=== PATIENT | male | born 1960 | race African-American/Black ===

== ENCOUNTER 2018-12-02 14:01 | Inpatient (IN) | payer OTHER ==
[~2018-12-02] VITALS: Ht 175.3 cm; Wt 99.3 kg
[2018-12-02] MEDS ORDERED: FUROSEMIDE 40MG/4ML VIAL IV ONE (15:15)
[2018-12-02] MEDS ORDERED: ENALAPRIL 2.5MG/2ML VIAL 2ML IV ONE (15:15)
[2018-12-02] MEDS ORDERED: ASPIRIN 81MG TABLET PO ONE (15:15)
[2018-12-02 15:59] LABS: BASOPHILS % 1.2 % (0.0-2.0); EOSINOPHILS % 2.8 % (0.0-5.0); HEMATOCRIT. 45.9 % (42.0-52.0); HEMOGLOBIN. 14.9 g/dL (14.0-18.0); LYMPHOCYTES % 24.3 % (20.0-50.0); MEAN CORPUSCULAR HEMOGLOBIN 29.3 pg (28.0-32.0); MEAN CORPUSCULAR VOLUME 89.9 fL (80.0-94.0); MEAN PLATELET VOLUME 8.9 fl (7.4-10.4); MONOCYTES % 8.5 % (2.0-8.0); NEUTROPHILS % 63.2 % (40.0-76.0); PLATELET 187 x1000/uL (130-400); RED CELL DISTRIBUTION WIDTH 15.7 % (11.6-14.6)
[2018-12-02 16:03] LABS: CHLORIDE 107 mEq/L (98-107)
[2018-12-02 16:06] LABS: INR 1.1; PARTIAL THROMBOPLASTIN TIME 27.3 sec (23.4-31.0); PROTHROMBIN TIME 10.9 sec (9.1-11.1)
[2018-12-02] MEDS ORDERED: POTASSIUM CHLORIDE 20MEQ TABLET SR PO ONE (16:15)
[2018-12-02] MEDS ORDERED: IPRATROPIUM/ALBUTEROL 0.5-3(2.5)MG/3ML NEB INH PRN (17:30)
[2018-12-02] MEDS ORDERED: NA PHOS,M-B/NA PHOS,DI-BA ENEMA 118ML PR PRN (17:30)
[2018-12-02] MEDS ORDERED: MAGNESIUM/ALUMINUM HYDROXIDE/SIMETHICONE 30ML UDC PO PRN (17:30)
[2018-12-02] MEDS ORDERED: DOCUSATE SODIUM 100MG CAPSULE PO PRN (17:30)
[2018-12-02] MEDS ORDERED: LORAZEPAM 2MG/ML CPJ IV PRN (17:30)
[2018-12-02] MEDS ORDERED: DIPHENHYDRAMINE 50MG/ML VIAL IV PRN (17:30)
[2018-12-02] MEDS ORDERED: ONDANSETRON HCL 4MG/2ML INJ IV PRN (17:30)
[2018-12-02] MEDS ORDERED: GUAIFENESIN 200MG/10ML SUGAR FREE UDC PO PRN (17:30)
[2018-12-02] MEDS ORDERED: ACETAMINOPHEN 325MG TABLET PO PRN (17:30)
[2018-12-02] MEDS ORDERED: HYDRALAZINE 20MG/ML VIAL IV PRN ×2 (17:30→18:00)
[2018-12-02] MEDS ORDERED: HYDROCODONE/ACETAMINOPHEN 10/325MG TABLET PO PRN (17:30)
[2018-12-02] MEDS ORDERED: HYDROMORPHONE HCL/PF 2MG/ML CPJ IV PRN (17:30)
[2018-12-02] MEDS ORDERED: ENOXAPARIN 40MG/0.4ML SYR SUBCUT NR (18:15)
[2018-12-02] MEDS: CLONIDINE 0.1MG TABLET PO PRN (23:07)
[2018-12-02 23:50] LABS: CREATINE KINASE MB FRACTION 3.7 ng/mL (0.5-3.6)
[2018-12-03] VITALS (7 sets, daily range): BP systolic 119–169; BP diastolic 86–127
[2018-12-03] MEDS ORDERED: BRIM5DRO6 EACHEYE (00:55)
[2018-12-03] MEDS ORDERED: TIMO5DRO32 OP (00:55)
[2018-12-03] MEDS ORDERED: DORZ10DR17 OP (00:55)
[2018-12-03] MEDS: SODIUM CHLORIDE 0.9% INJ 3ML FLUSH IVF SCH ×3 (05:14→21:03)
[2018-12-03 05:47] LABS: *AMPHETAMINES SCREEN URINE NEGATIVE (NEGATIVE); *BARBITURATES SCREEN URINE NEGATIVE (NEGATIVE)
[2018-12-03 05:48] LABS: *BENZODIAZEPINES SCREEN URINE NEGATIVE (NEGATIVE); *COCAINE SCREEN URINE NEGATIVE (NEGATIVE); CANNABINOID URINE SCREEN NEGATIVE (NEGATIVE); METHADONE URINE SCREEN NEGATIVE (NEGATIVE); OPIATES URINE SCREEN NEGATIVE (NEGATIVE); PHENCYCLIDINE URINE SCREEN NEGATIVE (NEGATIVE)
[2018-12-03 06:38] LABS: CHLORIDE 111 mEq/L (98-107)
[2018-12-03 06:41] LABS: BASOPHILS % 1.2 % (0.0-2.0); EOSINOPHILS % 3.8 % (0.0-5.0); HEMATOCRIT. 40.2 % (42.0-52.0); HEMOGLOBIN. 13.2 g/dL (14.0-18.0); LYMPHOCYTES % 20.9 % (20.0-50.0); MEAN CORPUSCULAR HEMOGLOBIN 29.4 pg (28.0-32.0); MEAN CORPUSCULAR VOLUME 89.6 fL (80.0-94.0); MEAN PLATELET VOLUME 9.3 fl (7.4-10.4); MONOCYTES % 10.7 % (2.0-8.0); NEUTROPHILS % 63.4 % (40.0-76.0); PLATELET 164 x1000/uL (130-400); RED BLOOD CELL COUNT 4.49 mill/uL (4.7-6.1)
[2018-12-03 06:58] LABS: LDL CHOLESTEROL 95 mg/dL (5-100)
[2018-12-03 06:59] LABS: CREATINE KINASE 103 IU/L (39-308); CREATINE KINASE MB FRACTION 3.1 ng/mL (0.5-3.6); HDL CHOLESTEROL 39 mg/dL (40-59); T4 FREE 1.11 ng/dL (0.76-1.46)
[2018-12-03] MEDS ORDERED: ENOXAPARIN 40MG/0.4ML SYR SUBCUT SCH (09:00)
[2018-12-03] MEDS ORDERED: ASPIRIN 81MG EC TABLET PO SCH (09:00)
[2018-12-03] MEDS: CLONIDINE 0.1MG TABLET PO PRN ×2 (09:33→17:45)
[2018-12-03] MEDS: FUROSEMIDE 40MG/4ML VIAL IV SCH (09:34)
[2018-12-03] MEDS: ENOXAPARIN 30MG/0.3ML SYR SUBCUT SCH ×2 (09:34→21:03)
[2018-12-03] MEDS ORDERED: POTASSIUM CHLORIDE INJ 40 MEQ in DEXT 5% WATER 250 ML IV NR (13:00)
[2018-12-03] MEDS: DORZOLAMIDE 2% OPHTH 10 ML BOTTLE BOTHEYE SCH ×2 (14:22→16:22)
[2018-12-03 15:51] LABS: CHLORIDE 110 mEq/L (98-107)
[2018-12-03 16:14] LABS: CREATINE KINASE MB FRACTION 3.1 ng/mL (0.5-3.6)
[2018-12-03] MEDS: TIMOLOL MALEATE 0.5% OPHTH DROPS 5ML EACHEYE SCH (16:23)
[2018-12-03] MEDS ORDERED: TIMOLOL MALEATE OP SCH (17:00)
[2018-12-03] MEDS ORDERED: DORZOLAMIDE HCL OP SCH (17:00)
[2018-12-03 18:21] LABS: T4 FREE 0.99 ng/dL (0.76-1.46)
[2018-12-03] MEDS: CARVEDILOL 3.125 MG TABLET PO SCH (21:02)
[2018-12-03] MEDS: LATANOPROST 0.005% OPHTH DROPS 2.5ML BOTHEYE SCH (21:03)
[2018-12-03] MEDS ORDERED: MAGNESIUM 1 G PREMIX 100 ML IV NR (22:00)
[2018-12-03] MEDS: BRIMONIDINE 0.2% OPHTH DROPS 5ML EACHEYE SCH (22:30)
[2018-12-04] VITALS (7 sets, daily range): BP systolic 130–154; BP diastolic 85–105
[2018-12-04 01:31] LABS: CREATINE KINASE MB FRACTION 2.4 ng/mL (0.5-3.6)
[2018-12-04] MEDS: CLONIDINE 0.1MG TABLET PO PRN (05:38)
[2018-12-04] MEDS: SODIUM CHLORIDE 0.9% INJ 3ML FLUSH IVF SCH ×3 (05:38→20:59)
[2018-12-04 08:05] LABS: BASOPHILS % 1.1 % (0.0-2.0); EOSINOPHILS % 5.1 % (0.0-5.0); HEMATOCRIT. 39.6 % (42.0-52.0); HEMOGLOBIN. 12.8 g/dL (14.0-18.0); LYMPHOCYTES % 16.5 % (20.0-50.0); MEAN CORPUSCULAR HEMOGLOBIN 28.8 pg (28.0-32.0); MEAN CORPUSCULAR VOLUME 88.8 fL (80.0-94.0); MEAN PLATELET VOLUME 9.1 fl (7.4-10.4); MONOCYTES % 9.2 % (2.0-8.0); NEUTROPHILS % 68.1 % (40.0-76.0); PLATELET 166 x1000/uL (130-400); RED BLOOD CELL COUNT 4.46 mill/uL (4.7-6.1); RED CELL DISTRIBUTION WIDTH 14.8 % (11.6-14.6)
[2018-12-04 08:17] LABS: CREATINE KINASE MB FRACTION 2.4 ng/mL (0.5-3.6)
[2018-12-04] MEDS: FUROSEMIDE 40MG/4ML VIAL IV SCH (08:22)
[2018-12-04] MEDS: ASPIRIN 81MG TABLET PO SCH (08:22)
[2018-12-04] MEDS: LOSARTAN POTASSIUM 50 MG TABLET PO SCH (08:22)
[2018-12-04] MEDS: CARVEDILOL 3.125 MG TABLET PO SCH ×2 (08:22→20:59)
[2018-12-04] MEDS: DORZOLAMIDE 2% OPHTH 10 ML BOTTLE BOTHEYE SCH ×3 (08:23→17:34)
[2018-12-04] MEDS: ENOXAPARIN 30MG/0.3ML SYR SUBCUT SCH ×2 (08:23→20:58)
[2018-12-04] MEDS: TIMOLOL MALEATE 0.5% OPHTH DROPS 5ML EACHEYE SCH ×2 (08:23→17:35)
[2018-12-04] MEDS: BRIMONIDINE 0.2% OPHTH DROPS 5ML EACHEYE SCH ×2 (08:23→17:35)
[2018-12-04 09:06] LABS: CHLORIDE 108 mEq/L (98-107)
[2018-12-04] MEDS ORDERED: POTASSIUM CHLORIDE 20MEQ TABLET SR PO SCH (09:20)
[2018-12-04] MEDS ORDERED: GUAIFENESIN 600MG ER TABLET PO SCH (10:00)
[2018-12-04] MEDS: LATANOPROST 0.005% OPHTH DROPS 2.5ML BOTHEYE SCH (20:59)
[2018-12-05] VITALS: BP 120/80
[2018-12-05 04:00] VITALS: BP 120/75
[2018-12-05] MEDS: SODIUM CHLORIDE 0.9% INJ 3ML FLUSH IVF SCH (05:42)
[2018-12-05 08:00] VITALS: BP 164/105
[2018-12-05] MEDS: FUROSEMIDE 40MG/4ML VIAL IV SCH (08:43)
[2018-12-05] MEDS: ASPIRIN 81MG TABLET PO SCH (08:43)
[2018-12-05] MEDS: LOSARTAN POTASSIUM 50 MG TABLET PO SCH (08:43)
[2018-12-05] MEDS: CARVEDILOL 3.125 MG TABLET PO SCH (08:43)
[2018-12-05] MEDS: ENOXAPARIN 30MG/0.3ML SYR SUBCUT SCH (08:43)
[2018-12-05] MEDS: TIMOLOL MALEATE 0.5% OPHTH DROPS 5ML EACHEYE SCH (08:44)
[2018-12-05] MEDS: DORZOLAMIDE 2% OPHTH 10 ML BOTTLE BOTHEYE SCH (08:44)
[2018-12-05] MEDS: BRIMONIDINE 0.2% OPHTH DROPS 5ML EACHEYE SCH (08:44)
[2018-12-05 12:00] VITALS: BP 150/100
== END 2018-12-05 12:20 | disposition home or self-care (01) | DRG 291 ==
LOC: ER 14:01 → 5WST 15:35 → EDBEDREQTM 15:37 → EDBEDREQ 15:37 → ENRESERV 22:27
PROVIDERS: ADMIT Internal Medicine; ATTEND Internal Medicine
DX: I11.0 Hypertensive heart disease with heart failure (principal); J96.90 Respiratory failure, unspecified, unspecified whether with hypoxia or hypercapnia; I50.40 Unspecified combined systolic (congestive) and diastolic (congestive) heart failure; E87.6 Hypokalemia; E78.5 Hyperlipidemia, unspecified; Z91.14 Patient's other noncompliance with medication regimen; Z91.19 Patient's noncompliance with other medical treatment and regimen
CPT/HCPCS: 36415; 71045; 80048; 80061; 80305; 82550; 82553; 83036; 83735; 83880; 84439; 84443; 84484; 85379; 93005; 93306; 93970; 96374; 96375; 99285; J0360; J1650; J1940; J3475; J3480; J3490; J7050; J7060

== ENCOUNTER 2019-01-24 20:09 | Inpatient (IN) | payer OTHER ==
[~2019-01-24] VITALS: Ht 175.3 cm; Wt 103.4 kg
[~2019-01-24 20:09] MED LIST: BRIM5DRO6 EACHEYE; DORZ10DR17 OP; TIMO5DRO32 OP
[2019-01-24] MEDS ORDERED: IPRATROPIUM BROMIDE (0.02%) 0.5MG/2.5ML NEB HHN STA (21:23)
[2019-01-24] MEDS ORDERED: ALBUTEROL (0.083%) 2.5MG/3ML NEB HHN STA (21:23)
[2019-01-24] MEDS ORDERED: SODIUM CHLORIDE 0.9% 1,000 ML IV ONE (21:23)
[2019-01-24] MEDS ORDERED: ASPIRIN 81MG TABLET PO ONE (21:30)
[2019-01-24 22:05] LABS: HEMOGLOBIN. 14.1 g/dL (14.0-18.0); MEAN CORPUSCULAR HEMOGLOBIN 28.7 pg (28.0-32.0); MEAN CORPUSCULAR VOLUME 89.5 fL (80.0-94.0); MEAN PLATELET VOLUME 9.2 fl (7.4-10.4); PLATELET 164 x1000/uL (130-400); RED BLOOD CELL COUNT 4.92 mill/uL (4.7-6.1); RED CELL DISTRIBUTION WIDTH 15.6 % (11.6-14.6)
[2019-01-24 22:08] LABS: CHLORIDE 108 mEq/L (98-107)
[2019-01-24] MEDS ORDERED: POTASSIUM CHLORIDE 20MEQ TABLET SR PO ONE (22:15)
[2019-01-24] MEDS ORDERED: FUROSEMIDE 40MG/4ML VIAL IVP ONE (22:45)
[2019-01-24 23:10] LABS: PLATELET ESTIMATE NORMAL
[2019-01-24] MEDS ORDERED: IPRATROPIUM/ALBUTEROL 0.5-3(2.5)MG/3ML NEB INH PRN (23:45)
[2019-01-24] MEDS ORDERED: NA PHOS,M-B/NA PHOS,DI-BA ENEMA 118ML PR PRN (23:45)
[2019-01-24] MEDS ORDERED: ACETAMINOPHEN 325MG TABLET PO PRN (23:45)
[2019-01-24] MEDS ORDERED: ACETAMINOPHEN 650MG SUPP PR PRN (23:45)
[2019-01-24] MEDS ORDERED: HYDROCODONE/ACETAMINOPHEN 5/325MG TABLET PO PRN (23:45)
[2019-01-24] MEDS ORDERED: GUAIFENESIN 200MG/10ML SUGAR FREE UDC PO PRN (23:45)
[2019-01-24] MEDS ORDERED: DIPHENHYDRAMINE 50MG/ML VIAL IV PRN (23:45)
[2019-01-24] MEDS ORDERED: ACETAMINOPHEN 650MG/20.3ML UDC GT PRN (23:45)
[2019-01-24] MEDS ORDERED: ONDANSETRON HCL 4MG/2ML INJ IV PRN (23:45)
[2019-01-24] MEDS ORDERED: DOCUSATE SODIUM 100MG CAPSULE PO PRN (23:45)
[2019-01-24] MEDS ORDERED: MAGNESIUM/ALUMINUM HYDROXIDE/SIMETHICONE 30ML UDC PO PRN (23:45)
[2019-01-25] VITALS: BP 156/103
[2019-01-25] MEDS: METHYLPREDNISOLONE SOD SUCC 125 MG/2 ML VIAL IV SCH ×4 (00:29→18:05)
[2019-01-25] MEDS: SODIUM CHLORIDE 0.9% INJ 3ML FLUSH IVF SCH ×3 (06:28→21:57)
[2019-01-25 06:33] LABS: HEMATOCRIT. 46.5 % (42.0-52.0); MEAN CORPUSCULAR VOLUME 89.5 fL (80.0-94.0); MEAN PLATELET VOLUME 9.4 fl (7.4-10.4); PLATELET 171 x1000/uL (130-400); RED BLOOD CELL COUNT 5.19 mill/uL (4.7-6.1); RED CELL DISTRIBUTION WIDTH 15.8 % (11.6-14.6)
[2019-01-25 07:38] LABS: CHLORIDE 110 mEq/L (98-107)
[2019-01-25 07:50] LABS: LDL CHOLESTEROL 97 mg/dL (5-100)
[2019-01-25 07:51] LABS: CREATINE KINASE 249 IU/L (39-308); HDL CHOLESTEROL 36 mg/dL (40-59)
[2019-01-25 07:57] LABS: CREATINE KINASE MB FRACTION 5.8 ng/mL (0.5-3.6)
[2019-01-25 08:00] VITALS: BP 141/100
[2019-01-25] MEDS: ENOXAPARIN 40MG/0.4ML SYR SUBCUT SCH (08:46)
[2019-01-25] MEDS: CLONIDINE 0.1MG TABLET PO PRN ×3 (08:46→21:55)
[2019-01-25] MEDS ORDERED: ASPI-1159 MT (09:39)
[2019-01-25] MEDS ORDERED: FURO80TA87 MT (09:39)
[2019-01-25] MEDS ORDERED: COR3 MT (09:39)
[2019-01-25] MEDS ORDERED: LOSA50TA20 MT (09:39)
[2019-01-25] MEDS ORDERED: MEDICATION NOT ON FORMULARY EA (Aspirin (Aspirin Low Dose) 1 TAB) MT SCH (09:45)
[2019-01-25] MEDS ORDERED: CARVEDILOL 3.125 MG TABLET PO SCH (09:45)
[2019-01-25] MEDS ORDERED: POTASSIUM CHLORIDE 20MEQ TABLET SR PO NR ×2 (09:45→14:45)
[2019-01-25] MEDS: IPRATROPIUM/ALBUTEROL 0.5-3(2.5)MG/3ML NEB INH SCH ×3 (09:57→20:49)
[2019-01-25] MEDS: FUROSEMIDE 40MG/4ML VIAL IVP SCH (10:19)
[2019-01-25] MEDS: ASPIRIN 81MG EC TABLET PO SCH (10:20)
[2019-01-25] MEDS: LISINOPRIL 5MG TABLET PO SCH (10:20)
[2019-01-25 12:00] VITALS: BP 144/105
[2019-01-25] MEDS: CARVEDILOL 12.5MG TABLET PO SCH ×2 (13:56→21:55)
[2019-01-25 16:00] VITALS: BP 148/117
[2019-01-25 17:35] LABS: PLATELET ESTIMATE NORMAL
[2019-01-25 18:14] VITALS: BP 146/107
[2019-01-25] MEDS: LOSARTAN POTASSIUM 50 MG TABLET PO SCH (18:59)
[2019-01-25 20:00] VITALS: BP 140/92
[2019-01-25 20:15] LABS: CLARITY URINE CLEAR (CLEAR); COLOR URINE DARK YELLOW (YELLOW); KETONES URINE NEGATIVE (NEGATIVE); LEUKOCYTE ESTERASE URINE NEGATIVE (NEGATIVE); NITRITE URINE NEGATIVE (NEGATIVE); OCCULT BLOOD URINE NEGATIVE (NEGATIVE); PROTEIN URINE 1+ (NEGATIVE); SPECIFIC GRAVITY URINE 1.017 (1.005-1.030)
[2019-01-25 20:30] LABS: *AMPHETAMINES SCREEN URINE NEGATIVE (NEGATIVE); *BARBITURATES SCREEN URINE NEGATIVE (NEGATIVE); *BENZODIAZEPINES SCREEN URINE NEGATIVE (NEGATIVE); *COCAINE SCREEN URINE NEGATIVE (NEGATIVE)
[2019-01-25 20:31] LABS: CANNABINOID URINE SCREEN NEGATIVE (NEGATIVE); METHADONE URINE SCREEN NEGATIVE (NEGATIVE); OPIATES URINE SCREEN NEGATIVE (NEGATIVE); PHENCYCLIDINE URINE SCREEN NEGATIVE (NEGATIVE)
[2019-01-25] MEDS ORDERED: CARVEDILOL 12.5MG TABLET PO SCH (21:00)
[2019-01-26] VITALS: BP 132/94
[2019-01-26] MEDS: METHYLPREDNISOLONE SOD SUCC 125 MG/2 ML VIAL IV SCH ×3 (00:09→12:12)
[2019-01-26] MEDS: IPRATROPIUM/ALBUTEROL 0.5-3(2.5)MG/3ML NEB INH SCH ×3 (01:21→14:04)
[2019-01-26 04:00] VITALS: BP 125/91
[2019-01-26] MEDS: SODIUM CHLORIDE 0.9% INJ 3ML FLUSH IVF SCH (06:26)
[2019-01-26 08:00] VITALS: BP 139/102
[2019-01-26] MEDS: ENOXAPARIN 40MG/0.4ML SYR SUBCUT SCH (08:45)
[2019-01-26] MEDS: FUROSEMIDE 40MG/4ML VIAL IVP SCH (08:45)
[2019-01-26] MEDS: CARVEDILOL 12.5MG TABLET PO SCH (08:46)
[2019-01-26] MEDS: ASPIRIN 81MG EC TABLET PO SCH (08:46)
[2019-01-26] MEDS: LISINOPRIL 5MG TABLET PO SCH (08:47)
[2019-01-26] MEDS: LOSARTAN POTASSIUM 50 MG TABLET PO SCH (08:48)
[2019-01-26] MEDS ORDERED: POTASSIUM CHLORIDE 20MEQ TABLET SR PO NR ×2 (10:15→11:45)
[2019-01-26] MEDS ORDERED: POTASSIUM CHLORIDE 20MEQ TABLET SR PO SCH (10:50)
[2019-01-26] MEDS ORDERED: SPIRONOLACTONE 25MG TABLET PO SCH (11:45)
[2019-01-26 12:00] VITALS: BP 123/90
[2019-01-26 12:23] LABS: CHLORIDE 107 mEq/L (98-107)
[2019-01-26 12:47] LABS: HEMOGLOBIN. 14.2 g/dL (14.0-18.0); MEAN CORPUSCULAR HEMOGLOBIN 28.9 pg (28.0-32.0); MEAN CORPUSCULAR VOLUME 89.7 fL (80.0-94.0); MEAN PLATELET VOLUME 9.7 fl (7.4-10.4); PLATELET 173 x1000/uL (130-400); RED CELL DISTRIBUTION WIDTH 15.4 % (11.6-14.6)
[2019-01-26 13:40] VITALS: BP 123/90
[2019-01-26 16:41] LABS: PLATELET ESTIMATE NORMAL
[2019-01-26] MEDS ORDERED: LOSARTAN POTASSIUM 50 MG TABLET PO SCH (21:00)
[2019-01-26] MEDS ORDERED: CARVEDILOL 25MG TABLET PO SCH (21:00)
== END 2019-01-26 15:40 | disposition home or self-care (01) | DRG 682 ==
LOC: ER 20:09 → 5WST 22:45 → EDBEDREQ 22:52 → EDBEDREQTM 22:52 → ENRESERV 22:58
PROVIDERS: ADMIT Family Medicine; ATTEND Family Medicine
DX: N17.9 Acute kidney failure, unspecified (principal); E43 Unspecified severe protein-calorie malnutrition; I50.23 Acute on chronic systolic (congestive) heart failure; J96.00 Acute respiratory failure, unspecified whether with hypoxia or hypercapnia; J44.1 Chronic obstructive pulmonary disease with (acute) exacerbation; I13.0 Hypertensive heart and chronic kidney disease with heart failure and stage 1 through stage 4 chronic kidney disease, or unspecified chronic kidney disease; I42.0 Dilated cardiomyopathy; E66.9 Obesity, unspecified; Z68.33 Body mass index [BMI] 33.0-33.9, adult; R73.9 Hyperglycemia, unspecified; E87.6 Hypokalemia; I27.20 Pulmonary hypertension, unspecified; N18.3 Chronic kidney disease, stage 3 (moderate); Z87.891 Personal history of nicotine dependence; Z91.14 Patient's other noncompliance with medication regimen; Z91.19 Patient's noncompliance with other medical treatment and regimen
CPT/HCPCS: 36415; 71045; 71250; 76770; 80061; 80305; 82550; 82553; 83880; 84484; 93005; 93306; 94640; 96374; 96375; 99285; J1650; J1940; J2930; J7030; J7611; J7620

== ENCOUNTER 2019-03-06 01:51 | Inpatient (IN) | payer OTHER ==
[~2019-03-06] VITALS: Ht 175.3 cm; Wt 106.6 kg
[~2019-03-06 01:51] MED LIST changes: +ASPI-1393 MT; +COR3 MT; +FURO80TA87 MT; +LOSA50TA41 MT
[2019-03-06] MEDS ORDERED: ENALAPRIL 2.5MG/2ML VIAL 2ML IV ONE (03:45)
[2019-03-06] MEDS ORDERED: FUROSEMIDE 40MG/4ML VIAL IV ONE (03:45)
[2019-03-06] MEDS ORDERED: NITROGLYCERIN OINT 1GM/INCH UDPKT TD ONE (03:45)
[2019-03-06 04:25] LABS: BASOPHILS % 1.3 % (0.0-2.0); EOSINOPHILS % 1.7 % (0.0-5.0); HEMATOCRIT. 43.3 % (42.0-52.0); HEMOGLOBIN. 14.3 g/dL (14.0-18.0); LYMPHOCYTES % 16.4 % (20.0-50.0); MEAN CORPUSCULAR HEMOGLOBIN 29.1 pg (28.0-32.0); MEAN CORPUSCULAR VOLUME 88.3 fL (80.0-94.0); MEAN PLATELET VOLUME 9.2 fl (7.4-10.4); NEUTROPHILS % 70.6 % (40.0-76.0); PLATELET 157 x1000/uL (130-400); RED BLOOD CELL COUNT 4.91 mill/uL (4.7-6.1); RED CELL DISTRIBUTION WIDTH 16.9 % (11.6-14.6)
[2019-03-06 04:27] LABS: CHLORIDE 111 mEq/L (98-107)
[2019-03-06 04:30] LABS: INR 1.1; PROTHROMBIN TIME 11.5 sec (9.6-11.0)
[2019-03-06] MEDS ORDERED: KCL 20MEQ/100ML PREMIX 100 ML IV ONE (05:30)
[2019-03-06] MEDS ORDERED: NITROGLYCERIN 0.4MG TABLET SL SL PRN (08:15)
[2019-03-06] MEDS ORDERED: GUAIFENESIN 200MG/10ML SUGAR FREE UDC PO PRN (08:15)
[2019-03-06] MEDS ORDERED: ACETAMINOPHEN 325MG TABLET PO PRN (08:15)
[2019-03-06] MEDS ORDERED: ENOXAPARIN 40MG/0.4ML SYR SUBCUT SCH (08:15)
[2019-03-06] MEDS ORDERED: LORAZEPAM 0.5MG TABLET PO PRN (08:15)
[2019-03-06] MEDS ORDERED: ONDANSETRON HCL 4MG/2ML INJ IV PRN (08:15)
[2019-03-06] MEDS ORDERED: TRAMADOL 50MG TABLET PO PRN (08:15)
[2019-03-06] MEDS ORDERED: DOCUSATE SODIUM 100MG CAPSULE PO PRN (08:15)
[2019-03-06] MEDS ORDERED: IPRATROPIUM/ALBUTEROL 0.5-3(2.5)MG/3ML NEB INH PRN (08:15)
[2019-03-06] MEDS ORDERED: MAGNESIUM/ALUMINUM HYDROXIDE/SIMETHICONE 30ML UDC PO PRN (08:15)
[2019-03-06] MEDS ORDERED: ZOLPIDEM TARTRATE 5MG TABLET PO PRN (08:15)
[2019-03-06] MEDS: GUAIFENESIN/DM 600MG/30MG ER TAB 12HR PO SCH ×2 (08:15→20:37)
[2019-03-06] MEDS ORDERED: POTASSIUM CHLORIDE 20MEQ TABLET SR PO NR (09:00)
[2019-03-06] MEDS: CLONIDINE 0.1MG TABLET PO PRN (09:06)
[2019-03-06] MEDS: LOSARTAN POTASSIUM 100 MG TABLET PO SCH (09:23)
[2019-03-06] MEDS: ASPIRIN 325MG EC TABLET PO SCH (10:01)
[2019-03-06] MEDS: FAMOTIDINE 20MG TABLET PO SCH ×2 (10:01→20:36)
[2019-03-06] MEDS: FUROSEMIDE 40MG/4ML VIAL IVP SCH ×2 (10:02→20:36)
[2019-03-06 11:04] VITALS: BP 150/118
[2019-03-06] MEDS ORDERED: SPIR25TA6 PO (11:09)
[2019-03-06] MEDS ORDERED: POTA10TA15 PO (11:10)
[2019-03-06 11:24] VITALS: BP 150/118
[2019-03-06] MEDS: SPIRONOLACTONE 25MG TABLET PO SCH ×2 (12:47→20:36)
[2019-03-06 15:41] LABS: *AMPHETAMINES SCREEN URINE NEGATIVE (NEGATIVE); CANNABINOID URINE SCREEN NEGATIVE (NEGATIVE); METHADONE URINE SCREEN NEGATIVE (NEGATIVE); OPIATES URINE SCREEN NEGATIVE (NEGATIVE); PHENCYCLIDINE URINE SCREEN NEGATIVE (NEGATIVE)
[2019-03-06 15:42] LABS: *BARBITURATES SCREEN URINE NEGATIVE (NEGATIVE); *BENZODIAZEPINES SCREEN URINE NEGATIVE (NEGATIVE)
[2019-03-06 15:43] LABS: *COCAINE SCREEN URINE NEGATIVE (NEGATIVE)
[2019-03-06 15:53] VITALS: BP 125/95
[2019-03-06] MEDS: CARVEDILOL 12.5MG TABLET PO SCH (18:23)
[2019-03-06] MEDS: ENOXAPARIN 30MG/0.3ML SYR SUBCUT SCH (20:39)
[2019-03-07] MEDS: CARVEDILOL 12.5MG TABLET PO SCH (06:03)
[2019-03-07 06:11] LABS: EOSINOPHILS % 2.7 % (0.0-5.0); HEMATOCRIT. 39.3 % (42.0-52.0); LYMPHOCYTES % 15.9 % (20.0-50.0); MEAN CORPUSCULAR HEMOGLOBIN 29.2 pg (28.0-32.0); MEAN CORPUSCULAR VOLUME 88.5 fL (80.0-94.0); MEAN PLATELET VOLUME 9.2 fl (7.4-10.4); MONOCYTES % 8.1 % (2.0-8.0); NEUTROPHILS % 72.3 % (40.0-76.0); PLATELET 145 x1000/uL (130-400); RED BLOOD CELL COUNT 4.44 mill/uL (4.7-6.1); RED CELL DISTRIBUTION WIDTH 17.2 % (11.6-14.6)
[2019-03-07 06:19] LABS: CHLORIDE 111 mEq/L (98-107)
[2019-03-07 08:00] VITALS: BP 142/106
[2019-03-07] MEDS: FAMOTIDINE 20MG TABLET PO SCH ×2 (09:26→20:18)
[2019-03-07] MEDS: FUROSEMIDE 40MG/4ML VIAL IVP SCH ×2 (09:27→20:18)
[2019-03-07] MEDS: ASPIRIN 325MG EC TABLET PO SCH (09:27)
[2019-03-07] MEDS: ENOXAPARIN 30MG/0.3ML SYR SUBCUT SCH ×2 (09:27→20:18)
[2019-03-07] MEDS: CLONIDINE 0.1MG TABLET PO PRN (09:27)
[2019-03-07] MEDS: SPIRONOLACTONE 25MG TABLET PO SCH ×2 (09:27→20:19)
[2019-03-07] MEDS: LOSARTAN POTASSIUM 100 MG TABLET PO SCH (09:27)
[2019-03-07] MEDS: GUAIFENESIN/DM 600MG/30MG ER TAB 12HR PO SCH ×2 (09:31→20:19)
[2019-03-07 10:00] VITALS: BP 131/90
[2019-03-07] MEDS ORDERED: POTASSIUM CHLORIDE 20MEQ TABLET SR PO NR (10:00)
[2019-03-07 12:00] VITALS: BP 136/101
[2019-03-07 14:00] VITALS: BP 132/96
[2019-03-07 16:00] VITALS: BP 132/96
[2019-03-07] MEDS: CARVEDILOL 25MG TABLET PO SCH (17:22)
[2019-03-07 20:00] VITALS: BP 133/94
[2019-03-07] MEDS: ATORVASTATIN CALCIUM 10MG TABLET PO SCH (20:18)
[2019-03-08] VITALS: BP 129/89
[2019-03-08 04:00] VITALS: BP 135/96
[2019-03-08] MEDS: CARVEDILOL 25MG TABLET PO SCH ×2 (06:19→18:27)
[2019-03-08 08:00] VITALS: BP 130/107
[2019-03-08] MEDS: GUAIFENESIN/DM 600MG/30MG ER TAB 12HR PO SCH ×2 (09:04→23:15)
[2019-03-08] MEDS: ENOXAPARIN 30MG/0.3ML SYR SUBCUT SCH ×2 (09:05→21:00)
[2019-03-08] MEDS: ASPIRIN 325MG EC TABLET PO SCH (09:05)
[2019-03-08] MEDS: LOSARTAN POTASSIUM 100 MG TABLET PO SCH (09:05)
[2019-03-08] MEDS: FUROSEMIDE 40MG/4ML VIAL IVP SCH ×2 (09:05→23:08)
[2019-03-08] MEDS: SPIRONOLACTONE 25MG TABLET PO SCH ×2 (09:05→23:16)
[2019-03-08] MEDS: FAMOTIDINE 20MG TABLET PO SCH ×2 (09:05→23:09)
[2019-03-08 12:30] LABS: BASOPHILS % 0.7 % (0.0-2.0); EOSINOPHILS % 2.9 % (0.0-5.0); HEMATOCRIT. 40.8 % (42.0-52.0); HEMOGLOBIN. 13.2 g/dL (14.0-18.0); LYMPHOCYTES % 12.5 % (20.0-50.0); MEAN CORPUSCULAR VOLUME 89.9 fL (80.0-94.0); MEAN PLATELET VOLUME 8.9 fl (7.4-10.4); MONOCYTES % 9.9 % (2.0-8.0); PLATELET 140 x1000/uL (130-400); RED BLOOD CELL COUNT 4.54 mill/uL (4.7-6.1); RED CELL DISTRIBUTION WIDTH 16.9 % (11.6-14.6)
[2019-03-08 12:38] LABS: PHOSPHORUS 3.9 mg/dL (2.5-4.9)
[2019-03-08] MEDS ORDERED: POTASSIUM CHLORIDE 20MEQ/PACKET PO NR (13:45)
[2019-03-08 15:44] VITALS: BP 143/102
[2019-03-08 18:00] VITALS: BP 140/115
[2019-03-08] MEDS: AMIODARONE HCL 200 MG TABLET PO SCH (18:27)
[2019-03-08 20:00] VITALS: BP 127/88
[2019-03-08] MEDS: ATORVASTATIN CALCIUM 10MG TABLET PO SCH (23:09)
[2019-03-09] VITALS: BP 144/89
[2019-03-09 04:00] VITALS: BP 129/89
[2019-03-09] MEDS: CARVEDILOL 25MG TABLET PO SCH ×2 (05:42→18:30)
[2019-03-09 08:00] VITALS: BP 114/74
[2019-03-09] MEDS: GUAIFENESIN/DM 600MG/30MG ER TAB 12HR PO SCH ×2 (11:10→20:41)
[2019-03-09] MEDS: ASPIRIN 325MG EC TABLET PO SCH (11:10)
[2019-03-09] MEDS: SPIRONOLACTONE 25MG TABLET PO SCH ×2 (11:12→21:41)
[2019-03-09] MEDS: AMIODARONE HCL 200 MG TABLET PO SCH ×2 (11:13→18:31)
[2019-03-09] MEDS: LOSARTAN POTASSIUM 100 MG TABLET PO SCH (11:13)
[2019-03-09] MEDS: FUROSEMIDE 40MG/4ML VIAL IVP SCH ×2 (11:13→21:41)
[2019-03-09] MEDS: FAMOTIDINE 20MG TABLET PO SCH ×2 (11:13→21:41)
[2019-03-09] MEDS: ENOXAPARIN 30MG/0.3ML SYR SUBCUT SCH (11:14)
[2019-03-09 12:00] VITALS: BP 125/97
[2019-03-09] MEDS ORDERED: METOLAZONE 2.5MG TABLET PO NR (19:30)
[2019-03-09 20:00] VITALS: BP 122/99
[2019-03-09] MEDS: ENOXAPARIN 100MG/ML SYR SUBCUT SCH (20:41)
[2019-03-09] MEDS: ATORVASTATIN CALCIUM 10MG TABLET PO SCH (21:41)
[2019-03-09] MEDS: ISOSORB DINIT/HYDRALAZINE HCL 20/37.5MG TABLET PO SCH (21:43)
[2019-03-10] VITALS (7 sets, daily range): BP systolic 112–160; BP diastolic 59–105
[2019-03-10 03:57] LABS: CLARITY URINE CLEAR (CLEAR); COLOR URINE YELLOW (YELLOW); KETONES URINE NEGATIVE (NEGATIVE); LEUKOCYTE ESTERASE URINE NEGATIVE (NEGATIVE); NITRITE URINE NEGATIVE (NEGATIVE); OCCULT BLOOD URINE NEGATIVE (NEGATIVE); PROTEIN URINE NEGATIVE (NEGATIVE); SPECIFIC GRAVITY URINE 1.006 (1.005-1.030); UROBILINOGEN URINE 0.2 E.U./dL (0.2-1.0)
[2019-03-10] MEDS: ISOSORB DINIT/HYDRALAZINE HCL 20/37.5MG TABLET PO SCH ×3 (06:22→21:19)
[2019-03-10] MEDS ORDERED: CARVEDILOL 6.25 MG TABLET PO SCH (09:00)
[2019-03-10] MEDS: ENOXAPARIN 100MG/ML SYR SUBCUT SCH ×2 (10:08→21:00)
[2019-03-10] MEDS: AMIODARONE HCL 200 MG TABLET PO SCH ×2 (10:09→18:05)
[2019-03-10] MEDS: GUAIFENESIN/DM 600MG/30MG ER TAB 12HR PO SCH ×2 (10:09→21:31)
[2019-03-10] MEDS: ASPIRIN 325MG EC TABLET PO SCH (10:09)
[2019-03-10] MEDS: FAMOTIDINE 20MG TABLET PO SCH ×2 (10:10→21:17)
[2019-03-10] MEDS: SPIRONOLACTONE 25MG TABLET PO SCH ×2 (10:10→21:18)
[2019-03-10] MEDS: FUROSEMIDE 40MG/4ML VIAL IVP SCH (10:11)
[2019-03-10] MEDS: LOSARTAN POTASSIUM 100 MG TABLET PO SCH (10:11)
[2019-03-10] MEDS ORDERED: MIDAZOLAM HCL 2 MG/2 ML VIAL ONE (15:17)
[2019-03-10] MEDS ORDERED: FENTANYL CITRATE/PF 50MCG/ML 2ML VIAL ONE (15:17)
[2019-03-10] MEDS ORDERED: IODIXANOL 320MG/ML 100 ML BOTTLE IV ONE ×2 (15:18→16:03)
[2019-03-10] MEDS ORDERED: LIDOCAINE HCL 1% 20ML VIAL (Pyxis) INJ ONE (15:18)
[2019-03-10] MEDS ORDERED: HYDRALAZINE 20MG/ML VIAL ONE (15:53)
[2019-03-10] MEDS ORDERED: ACETAMINOPHEN 325MG TABLET PO PRN (16:30)
[2019-03-10] MEDS ORDERED: ATROPINE SULFATE 1MG/10ML SYR IV PRN (16:30)
[2019-03-10] MEDS ORDERED: SODIUM CHLORIDE 0.45% 1,000 ML IV ONE (16:45)
[2019-03-10] MEDS: CARVEDILOL 12.5MG TABLET PO SCH (18:05)
[2019-03-10] MEDS: ATORVASTATIN CALCIUM 10MG TABLET PO SCH (21:17)
[2019-03-11] VITALS (12 sets, daily range): BP systolic 126–169; BP diastolic 47–117
[2019-03-11] MEDS: ISOSORB DINIT/HYDRALAZINE HCL 20/37.5MG TABLET PO SCH ×3 (05:26→21:13)
[2019-03-11 07:16] LABS: EOSINOPHILS % 1.8 % (0.0-5.0); HEMATOCRIT. 39.4 % (42.0-52.0); HEMOGLOBIN. 13.1 g/dL (14.0-18.0); LYMPHOCYTES % 12.9 % (20.0-50.0); MEAN CORPUSCULAR HEMOGLOBIN 29.1 pg (28.0-32.0); MEAN CORPUSCULAR VOLUME 87.9 fL (80.0-94.0); MEAN PLATELET VOLUME 9.1 fl (7.4-10.4); MONOCYTES % 12.2 % (2.0-8.0); NEUTROPHILS % 72.1 % (40.0-76.0); PLATELET 157 x1000/uL (130-400); RED BLOOD CELL COUNT 4.49 mill/uL (4.7-6.1); RED CELL DISTRIBUTION WIDTH 16.7 % (11.6-14.6)
[2019-03-11 07:24] LABS: CHLORIDE 100 mEq/L (98-107)
[2019-03-11] MEDS: AMIODARONE HCL 200 MG TABLET PO SCH ×2 (09:03→18:00)
[2019-03-11] MEDS: ASPIRIN 325MG EC TABLET PO SCH (09:03)
[2019-03-11] MEDS: SPIRONOLACTONE 25MG TABLET PO SCH ×2 (09:03→21:12)
[2019-03-11] MEDS: GUAIFENESIN/DM 600MG/30MG ER TAB 12HR PO SCH ×2 (09:03→21:08)
[2019-03-11] MEDS: FAMOTIDINE 20MG TABLET PO SCH ×2 (09:03→21:12)
[2019-03-11] MEDS: LOSARTAN POTASSIUM 100 MG TABLET PO SCH (09:03)
[2019-03-11] MEDS: CARVEDILOL 12.5MG TABLET PO SCH ×2 (09:03→18:00)
[2019-03-11] MEDS: ENOXAPARIN 100MG/ML SYR SUBCUT SCH (09:04)
[2019-03-11] MEDS ORDERED: POTASSIUM CHLORIDE 20MEQ TABLET SR PO SCH (09:30)
[2019-03-11] MEDS: FUROSEMIDE 40MG TABLET PO SCH (09:36)
[2019-03-11] MEDS ORDERED: POTASSIUM CHLORIDE INJ 40 MEQ in DEXT 5% WATER 250 ML IV SCH (11:00)
[2019-03-11] MEDS ORDERED: FURO40TA5 PO (15:27)
[2019-03-11] MEDS ORDERED: CARV12.545 PO (15:27)
[2019-03-11] MEDS ORDERED: APIXABAN 5 MG TABLET PO SCH (17:00)
[2019-03-11 19:30] LABS: HEMATOCRIT 39.6 % (42.0-52.0); HEMOGLOBIN 13.1 g/dL (14.0-18.0); MEAN CORPUSCULAR HEMOGLOBIN 29.2 pg (28.0-32.0); MEAN CORPUSCULAR VOLUME 88.2 fL (80.0-94.0); PLATELET 166 x1000/uL (130-400); RED BLOOD CELL COUNT 4.49 mill/uL (4.7-6.1); RED CELL DISTRIBUTION WIDTH 17.1 % (11.6-14.6)
[2019-03-11] MEDS: ATORVASTATIN CALCIUM 10MG TABLET PO SCH (21:08)
[2019-03-12] VITALS (7 sets, daily range): BP systolic 134–172; BP diastolic 80–98
[2019-03-12] MEDS ORDERED: MAGNESIUM 2 G PREMIX 50 ML IV NR
[2019-03-12] MEDS: AMIODARONE HCL 200 MG TABLET PO SCH (06:38)
[2019-03-12] MEDS: ISOSORB DINIT/HYDRALAZINE HCL 20/37.5MG TABLET PO SCH (06:39)
[2019-03-12 07:20] LABS: BASOPHILS % 0.8 % (0.0-2.0); EOSINOPHILS % 2.1 % (0.0-5.0); HEMATOCRIT. 40.8 % (42.0-52.0); HEMOGLOBIN. 13.3 g/dL (14.0-18.0); LYMPHOCYTES % 11.2 % (20.0-50.0); MEAN CORPUSCULAR HEMOGLOBIN 28.9 pg (28.0-32.0); MEAN CORPUSCULAR VOLUME 88.3 fL (80.0-94.0); MEAN PLATELET VOLUME 9.3 fl (7.4-10.4); MONOCYTES % 13.5 % (2.0-8.0); NEUTROPHILS % 72.4 % (40.0-76.0); PLATELET 150 x1000/uL (130-400); RED BLOOD CELL COUNT 4.62 mill/uL (4.7-6.1); RED CELL DISTRIBUTION WIDTH 16.9 % (11.6-14.6)
[2019-03-12] MEDS: GUAIFENESIN/DM 600MG/30MG ER TAB 12HR PO SCH (08:16)
[2019-03-12] MEDS: FAMOTIDINE 20MG TABLET PO SCH (08:16)
[2019-03-12] MEDS: ASPIRIN 325MG EC TABLET PO SCH (08:16)
[2019-03-12] MEDS: SPIRONOLACTONE 25MG TABLET PO SCH (08:17)
[2019-03-12] MEDS: CARVEDILOL 12.5MG TABLET PO SCH (08:17)
[2019-03-12] MEDS: LOSARTAN POTASSIUM 100 MG TABLET PO SCH (08:17)
[2019-03-12] MEDS: FUROSEMIDE 40MG TABLET PO SCH (08:17)
[2019-03-12] MEDS ORDERED: POTASSIUM CHLORIDE 20MEQ/PACKET PO NR (10:00)
[2019-03-12] MEDS ORDERED: AMLODIPINE 5MG TABLET PO SCH (10:00)
[2019-03-13] MEDS ORDERED: SPIRONOLACTONE 50MG TABLET PO SCH (09:00)
[2019-03-13] MEDS ORDERED: ASPIRIN 81MG EC TABLET PO SCH (09:00)
== END 2019-03-12 12:00 | disposition home or self-care (01) | DRG 286 ==
LOC: ER 01:51 → 8WST 04:02 → EDBEDREQTM 04:04 → EDBEDREQ 04:04 → ENRESERV 10:08 → 3WST 03-10 16:30
PROVIDERS: ADMIT Internal Medicine; ATTEND Internal Medicine
PROC: 4A023N7 Measurement of Cardiac Sampling and Pressure, Left Heart, Percutaneous Approach (ICD-10-PCS; principal; 2019-03-06)
PROC: B2111ZZ Fluoroscopy of Multiple Coronary Arteries using Low Osmolar Contrast (ICD-10-PCS; 2019-03-06)
PROC: B2151ZZ Fluoroscopy of Left Heart using Low Osmolar Contrast (ICD-10-PCS; 2019-03-06)
DX: I13.0 Hypertensive heart and chronic kidney disease with heart failure and stage 1 through stage 4 chronic kidney disease, or unspecified chronic kidney disease (principal); I50.43 Acute on chronic combined systolic (congestive) and diastolic (congestive) heart failure; J96.00 Acute respiratory failure, unspecified whether with hypoxia or hypercapnia; N17.0 Acute kidney failure with tubular necrosis; E44.0 Moderate protein-calorie malnutrition; I48.1 Persistent atrial fibrillation; N17.9 Acute kidney failure, unspecified; I47.2 Ventricular tachycardia; I42.9 Cardiomyopathy, unspecified; E83.51 Hypocalcemia; E87.6 Hypokalemia; H40.9 Unspecified glaucoma; I07.1 Rheumatic tricuspid insufficiency; J44.9 Chronic obstructive pulmonary disease, unspecified; N18.2 Chronic kidney disease, stage 2 (mild); Z82.49 Family history of ischemic heart disease and other diseases of the circulatory system; Z91.14 Patient's other noncompliance with medication regimen; Z91.19 Patient's noncompliance with other medical treatment and regimen; Z87.891 Personal history of nicotine dependence; Z68.34 Body mass index [BMI] 34.0-34.9, adult; I25.10 Atherosclerotic heart disease of native coronary artery without angina pectoris
CPT/HCPCS: 36415; 71045; 80048; 80061; 80305; 82550; 82553; 83036; 83735; 83880; 84100; 84484; 84550; 85027; 93005; 93458; 93970; 96374; 99285; C1760; C1769; C1887; C1893; J0360; J1644; J1650; J1940; J2250; J3010; J3475; J3480; J3490; J7040; J7050; J7060; Q9967

== ENCOUNTER 2019-11-24 14:41 | Emergency (ER) | payer OTHER ==
[~2019-11-24] VITALS: Ht 167.6 cm; Wt 78.0 kg
[~2019-11-24 14:41] MED LIST changes: -ASPI-1393 MT; -BRIM5DRO6 EACHEYE; +CARV12.545 PO; -COR3 MT; -DORZ10DR17 OP; -FURO80TA87 MT; -LOSA50TA41 MT; -TIMO5DRO32 OP
[2019-11-24] MEDS ORDERED: FUROSEMIDE 40MG/4ML VIAL IVP ONE (19:00)
[2019-11-24 19:25] LABS: BASOPHILS % 1.4 % (0.0-2.0); EOSINOPHILS % 1.9 % (0.0-5.0); HEMATOCRIT. 45.7 % (42.0-52.0); HEMOGLOBIN. 14.3 g/dL (14.0-18.0); LYMPHOCYTES % 20.3 % (20.0-50.0); MEAN CORPUSCULAR HEMOGLOBIN 26.6 pg (28.0-32.0); MEAN CORPUSCULAR VOLUME 85.3 fL (80.0-94.0); MEAN PLATELET VOLUME 9.3 fl (7.4-10.4); MONOCYTES % 11.8 % (2.0-8.0); NEUTROPHILS % 64.6 % (40.0-76.0); PLATELET 148 x1000/uL (130-400); RED BLOOD CELL COUNT 5.36 mill/uL (4.7-6.1)
[2019-11-24 19:28] LABS: CHLORIDE 103 mEq/L (98-107)
[2019-11-24] MEDS ORDERED: CLONIDINE 0.2MG TABLET PO NR (21:00)
[2019-11-24] MEDS ORDERED: FUROSEMIDE 40MG/4ML VIAL IVP NR (23:15)
[2019-11-24 23:58] VITALS: BP 138/98
== END 2019-11-24 23:59 | disposition short-term general hospital (02) ==
LOC: ER 14:53
DX: I11.0 Hypertensive heart disease with heart failure (principal); I50.9 Heart failure, unspecified; J44.9 Chronic obstructive pulmonary disease, unspecified
CPT/HCPCS: 36415; 71045; 80053; 83880; 84484; 85025; 93005; 96374; 99285; J1940